=== PATIENT | male | born 1975 | race Caucasian/White ===

== ENCOUNTER 2025-04-09 08:34 | Outpatient (CLI) | payer BC | END 2025-04-09 08:35 | disposition home or self-care (01) | LOC: CSHSLEEP 08:34 | PROVIDERS: ATTEND Registered Nurse Critical Care Medicine | DX: G47.33 Obstructive sleep apnea (adult) (pediatric) (principal); R53.83 Other fatigue | CPT/HCPCS: 95811 ==